=== PATIENT | female | born 1995 | race Caucasian/White ===

== ENCOUNTER 2018-12-15 16:47 | Emergency (ER) | payer BC ==
--- NOTE | 2018-12-15 17:46 | EDPHY ---
HPI/HX/ROS/PE/MDM Narrative: CHIEF COMPLAINT: Leg pain/swelling s/p surgery 10/14/18 HPI: This patient is a generally healthy 23 year old female who underwent surgical correction for a tib/fib fracture on October 14 2018. She has been doing PT since 10/23 and generally feeling well. Earlier this week, she developed a new, "deeper bone pain" in her [place], particularly when she steps down. This pain occasionally radiates up to her knee or down to her ankle. Her physical therapist referred her to an urgent care clinic, who subsequently directed her to present to the ED for further evaluation. She endorses some mild swelling and warmth to tibial brendon. No fever, chest pain, shortness of breath, calf pain or swelling, or other associated symptoms. REVIEW OF SYSTEMS: A comprehensive 10 system review of systems is otherwise negative aside from elements mentioned in the history of present illness and medical decision making. PMH: ORIF tib/fib 10/14/18. SOCIAL HISTORY: Student. Friend at bedside. Does not abuse tobacco, drugs, or alcohol. PHYSICAL EXAM: General:Patient is alert, in no acute distress. ENT:Eyes are normal to inspection. ENT inspection normal. Neck: Normal inspection. Full range of motion. Respiratory:No respiratory distress. Breath sounds normal bilaterally. Cardiovascular: Regular rate and rhythm. Strong peripheral pulses. Normal cap refill. Abdomen:The abdomen is nontender to palpation. There are no peritoneal signs. There are normal bowel sounds. Back: Normal to inspection. No tenderness to palpation. Skin: Normal color. No rash. Warm and dry. Extremities: Left leg: Well-healed surgical incisions. Tenderness to bone over fracture site. Otherwise normal appearance of extremities. Full range of motion. Neuro: Oriented x3. Normal motor function. Normal sensory function. ED Course: 23 y/o female s/p ORIF left tib/fib fracture 10/14/18 presents with left leg pain and concern for DVT. Plan for US LLE for further evaluation. 17:[address] Hawthorne. US negative for DVT. Reviewed tibia/fibula x-ray shows healing subacute tibial and fibular fractures in anatomic alignment. No evidence of osteomyelitis. Laboratory studies completely unremarkable, no indication for systemic infection at this time. Patient is afebrile, well-appearing. No evidence of infection to surgical sites. 18:30 Reassessed patient. Discussed imaigng and laboratory results. Plan to discharge home in good condition. Follow up and return precautions discussed. She will follow up with her orthopedic surgeon. She is comfortable with this plan. - Data Points Imaging Results: Imaging Impressions Extremity Venous Study 12/15/18 17:13 Impression: There is no sonographic evidence of deep or superficial vein thrombosis in the left lower extremity. Findings were discussed with Daniel Ojeda MD at 17:46, on 12/15/2018. Tibia/Fibula X-Ray 12/15/18 17:54 Impression: 1. Healing subacute tibial and fibular fractures in anatomic alignment. 2. No radiographic evidence of osteomyelitis. Imaging: I viewed and interpreted images myself Laboratory Results: Laboratory Results 12/15/18 18:06 12/15/18 18:06 12/15/18 12/15/18 18:06 18:06 WBC 9.15 10^3/uL 10^3/uL (3.80-9.50) RBC 4.63 10^6/uL 10^6/uL (4.18-5.33) Hgb 14.2 g/dL g/dL (12.6-16.3) Hct 43.2 % % (38.0-47.0) MCV 93.3 fL fL (81.5-99.8) MCH 30.7 pg pg (27.9-34.1) MCHC 32.9 g/dL g/dL (32.4-36.7) RDW 12.5 % % (11.5-15.2) Plt Count 388 10^3/uL 10^3/uL (150-400) MPV 9.7 fL fL (8.7-11.7) Neut % (Auto) 54.3 % % (39.3-74.2) Lymph % (Auto) 37.2 % % (15.0-45.0) [place] % (Auto) 5.8 % % (4.5-13.0) Eos % (Auto) 2.1 % % (0.6-7.6) Baso % (Auto) 0.4 % % (0.3-1.7) Nucleat RBC Rel Count 0.0 % % (0.0-0.2) Absolute Neuts (auto) 4.97 10^3/uL 10^3/uL (1.70-6.50) Absolute Lymphs (auto) 3.40 10^3/uL H 10^3/uL (1.00-3.00) Absolute Monos (auto) 0.53 10^3/uL 10^3/uL (0.30-0.80) Absolute Eos (auto) 0.19 10^3/uL 10^3/uL (0.03-0.40) Absolute Basos (auto) 0.04 10^3/uL 10^3/uL (0.02-0.10) Absolute Nucleated RBC 0.00 10^3/uL 10^3/uL (0-0.01) Immature Gran % 0.2 % % (0.0-1.1) Immature Gran # 0.02 10^3/uL 10^3/uL (0.00-0.10) Sodium 136 mEq/L mEq/L (135-145) Potassium 4.3 mEq/L mEq/L (3.5-5.2) Chloride 100 mEq/L mEq/L (97-110) Carbon Dioxide 24 mEq/l mEq/l (22-31) Anion Gap 12 mEq/L mEq/L (6-14) BUN 19 mg/dL mg/dL (7-23) Creatinine 0.8 mg/dL mg/dL (0.6-1.0) Estimated GFR > 60 Glucose 81 mg/dL mg/dL (70-100) Calcium 10.2 mg/dL mg/dL (8.5-10.4) General Time Seen by Provider: 12/15/18 16:50 Initial Vital Signs: Initial Vital Signs Temperature (C) 36.6 C 12/15/18 16:48 Heart Rate 88 12/15/18 16:48 Respiratory Rate 16 12/15/18 16:48 Blood Pressure 131/80 H 12/15/18 16:48 O2 Sat (%) 99 12/15/18 16:48 O2 Delivery Mode Room Air Allergies/Adverse Reactions: No Known Allergies Allergy (Unverified 12/15/18 16:52) Home Medications: Medication Instructions Recorded Adderall 10 mg Tablet 12/15/18 Advil 12/15/18 Departure - Departure Disposition: Home, Routine, Self-Care Clinical Impression: Leg pain, left Condition: Good Instructions: Leg Pain (ED) Additional Instructions: Follow up with your surgeon for further evaluation. Return to the emergency department for worsening pain, swelling, numbness, weakness, fever, or other concerns. Referrals: [facility] [Other] - As per Instructions Report Scribed for: Daniel Ojeda Report Scribed by: Karen Mendoza Date of Report: 12/15/18 Time of Report: 18:46 Physician Review and Approval Statement: Portions of this note were transcribed by an ED scribe. I personally performed the history, physical exam, and medical decision making; and confirm the accuracy of the information in the transcribed note.
[2018-12-15 18:17] LABS: PLATELET COUNT 388 10^3/uL (150-400)
[2018-12-15 18:45] VITALS: BP 112/70
== END 2018-12-15 18:50 | disposition home or self-care (01) ==
DX: S82.302D Unspecified fracture of lower end of left tibia, subsequent encounter for closed fracture with routine healing (principal); S82.402D Unspecified fracture of shaft of left fibula, subsequent encounter for closed fracture with routine healing; X58.XXXD Exposure to other specified factors, subsequent encounter